=== PATIENT | male | born 1990 | race Caucasian/White ===

== ENCOUNTER 2016-12-23 09:28 | Emergency (ER) | payer BC, OTHER ==
[2016-12-23 09:42] VITALS: RESP 18; TEMP 97.8
[2016-12-23] MEDS ORDERED: ALBUTEROL NEBULIZED 2.5 MG/3 ML INHALATION STA (10:28)
--- NOTE | 2016-12-23 10:53 | ED ---
SOB HPI - General Chief Complaint: Shortness of Breath Stated Complaint: Sob Time Seen by Provider: 12/23/16 09:43 Source: patient, RN notes reviewed Mode of arrival: ambulatory Limitations: no limitations - History of Present Illness Initial Comments: this a 26-year-old male presents emergency Department with chief complaint of shortness of breath. Patient states that he started having shortness of breath earlier today. He states that he felt he could not get a full inspiration. Patient states he has no exertional shortness breath. Patient states that he just feels like his right lower lung is not working. Patient has no known history. Patient states that he stopped smoking proximal one month ago. He denies any cough or cold-like symptoms. Denies fever, chills. Patient denies any palpitations or left-sided chest pain. Patient has no abdominal pain including nausea, vomiting diarrhea constipation. - Related Data Home Medications Medication Instructions Recorded Confirmed Acetaminophen [Tylenol] 325 mg PO Q4H PRN 12/23/16 12/23/16 Previous Rx's Medication Instructions Recorded Albuterol Sulfate [Proair Hfa] 1 - 2 puff INHALATION Q4HR PRN #1 12/23/16 inhaler Allergies Allergy/AdvReac Type Severity Reaction Status Date / Time Penicillins Allergy Unknown Verified 12/23/16 10:15 Childhood Review of Systems ROS Statement: Those systems with pertinent positive or pertinent negative responses have been documented in the HPI. ROS Other: All systems not noted in ROS Statement are negative. Past Medical History Past Medical History: No Reported History History of Any Multi-Drug Resistant Organisms: None Reported Past Surgical History: No Surgical Hx Reported Past Psychological History: No Psychological Hx Reported Smoking Status: Former smoker Past Alcohol Use History: None Reported Past Drug Use History: None Reported General Exam Limitations: no limitations General appearance: alert, in no apparent distress Head exam: Present: atraumatic, normocephalic, normal inspection Eye exam: Present: normal appearance, PERRL, EOMI. Absent: scleral icterus, conjunctival injection, periorbital swelling ENT exam: Present: normal exam, normal oropharynx, mucous membranes moist, TM's normal bilaterally, normal external ear exam Neck exam: Present: normal inspection, full ROM. Absent: tenderness, meningismus, lymphadenopathy Respiratory exam: Present: normal lung sounds bilaterally. Absent: respiratory distress, wheezes, rales, rhonchi, stridor Cardiovascular Exam: Present: regular rate, normal rhythm, normal heart sounds. Absent: systolic murmur, diastolic murmur, rubs, gallop, clicks GI/Abdominal exam: Present: soft, normal bowel sounds. Absent: distended, tenderness, guarding, rebound, rigid Back exam: Absent: CVA tenderness (R), CVA tenderness (L) Course Vital Signs 12/23/16 12/23/16 12/23/16 09:40 11:02 11:14 Temperature 97.8 F Pulse Rate 82 74 76 Respiratory 18 Rate Blood Pressure 124/69 O2 Sat by Pulse 99 Oximetry 12/23/16 11:30 Temperature 97.8 F Pulse Rate 93 Respiratory 18 Rate Blood Pressure 138/69 O2 Sat by Pulse 98 Oximetry Medical Decision Making - Medical Decision Making 26-year-old male presented for shortness breath. Patient states she does feel better after breathing treatment. Chest x-ray shows no acute abnormality. Patient be discharged with Proventil inhaler. Return parameters were discussed. Disposition Clinical Impression: Bronchospasm Disposition: HOME SELF-CARE Condition: Stable Instructions: Bronchospasm (ED) Additional Instructions: Please return to the Emergency Department if symptoms worsen or any other concerns. Prescriptions: Albuterol Sulfate [Proair Hfa] 1 - 2 puff INHALATION Q4HR PRN #1 inhaler PRN Reason: difficulty in breathing Time of Disposition: 11:43
--- NOTE | 2016-12-23 11:04 | XR ---
EXAMINATION TYPE: XR chest 2V DATE OF EXAM: 12/23/2016 10:58 AM COMPARISON: NONE HISTORY: Cough, shortness of breath, pain TECHNIQUE: Frontal and lateral views of the chest are obtained. FINDINGS: There is no focal air space opacity, pleural effusion, or pneumothorax seen. The cardiac silhouette size is within normal limits. The osseous structures are intact. IMPRESSION: No acute cardiopulmonary process.
[2016-12-23 11:38] VITALS: BP 138/69; PULSE 93
== END 2016-12-23 11:58 | disposition home or self-care (01) ==
LOC: EC 09:28
DX: J98.01 Acute bronchospasm (principal); Z87.891 Personal history of nicotine dependence; Z88.0 Allergy status to penicillin
CPT/HCPCS: 71020; 94640; 99285

== ENCOUNTER → 2017-05-29 | Outpatient (CLI) | payer OTHER ==
--- NOTE | 2017-05-29 15:50 | XR ---
EXAMINATION TYPE: XR foot complete RT DATE OF EXAM: 05/29/2017 CLINICAL HISTORY: Metal hook puncture wound through right shoe in the mid plantar region. TECHNIQUE: Frontal, lateral, and oblique images of the foot are obtained. COMPARISON: 03/16/2014 FINDINGS: There is no acute fracture/dislocation evident in the right foot. There is incomplete uni on of the previously seen oblique fracture of the medial base of the distal phalanx. The joint spaces in the right foot appear within normal limits. The overlying soft tissue appears unremarkable. Ther e is no radiopaque foreign body present. No subcutaneous emphysema is seen. IMPRESSION: 1. No radiopaque foreign body or subcutaneous emphysema. 2. There is no acute fracture or dislocation in the right foot. 3. Incomplete union of the previously seen fracture of the distal first phalanx on the exam of 014.
== END | disposition home or self-care (01) ==
LOC: RADXRMAIN 15:33
PROVIDERS: ATTEND Emergency Medicine
DX: S91.331A Puncture wound without foreign body, right foot, initial encounter (principal)

== ENCOUNTER → 2017-07-28 | Outpatient (CLI) | payer OTHER, BC ==
--- NOTE | 2017-07-29 10:33 | XR ---
Right humerus HISTORY: Lifting injury, pain 2 views of the right humerus No comparisons Bone mineralization, joint spaces and alignment are maintained. IMPRESSION: No acute fracture or dislocation.
--- NOTE | 2017-07-29 10:34 | XR ---
Right shoulder HISTORY: Large drain 3 views of the right shoulder Correlation to right humerus same date Bone mineralization, joint spaces and alignment are maintained. Right lung apex as visualized is norm al. IMPRESSION: No acute fracture or dislocation is evident.
== END | disposition home or self-care (01) ==
LOC: RADXRMAIN 17:08
PROVIDERS: ATTEND Emergency Medicine
DX: S46.911A Strain of unspecified muscle, fascia and tendon at shoulder and upper arm level, right arm, initial encounter (principal)

== ENCOUNTER → 2018-12-25 | Outpatient (CLI) | payer BC ==
--- NOTE | 2018-12-25 19:15 | CT ---
EXAMINATION TYPE: CT chest wo con DATE OF EXAM: 12/25/2018 COMPARISON: None HISTORY: Abnormal weight loss and coughing up blood x1 year. CT DLP: 422.7 mGycm. Automated Exposure Control for Dose Reduction was Utilized. TECHNIQUE: CT scan of the thorax is performed without IV contrast. FINDINGS: Heart and mediastinum appear normal. There are no hilar masses. There is no evidence of thoracic aort ic aneurysm. Heart size is normal. There is no pericardial effusion. There is no pleural effusion. There is no evidence of pulmonary infiltrate. There is no bronchiectasis. The bony thorax is intact.. Upper abdominal soft tissues are unremarkable. IMPRESSION: Negative CT scan of the chest. I do not see a cause for hemoptysis.
== END | disposition home or self-care (01) ==
LOC: RADCTMAIN 16:55
PROVIDERS: ATTEND Family Medicine
DX: R63.4 Abnormal weight loss (principal)
CPT/HCPCS: 71250

== ENCOUNTER 2020-09-06 11:32 | Day surgery (SDC) | payer BC ==
[2020-09-04 10:56] VITALS: BMI 31.9
[~2020-09-06 11:32] MED LIST: ALBUTEROL NEB (CONC) 2.5 MG/0.5 ML INHALATION ONE; ATROPINE SULFATE 0.4 MG/ML 1 ML VIAL IM ONE; LACTATED RINGERS 1,000 ML IV SCH; LIDOCAINE 1% (10MG/ML) FOR IV START INTRADERMA PRN; LIDOCAINE 2% (PF) 20 MG/ML 5 ML VIAL INHALATION ONE; LIDOCAINE VISCOUS 300 MG/15 ML CUP MUCOUS MEM ONE; SODIUM CHLORIDE 0.9% 1,000 ML IV SCH
[2020-09-06 12:47] LABS: Glucose,Whole Blood 88 mg/dL (75-99)
[2020-09-06] MEDS ORDERED: PROPOFOL 10 MG/ML 20 ML VIAL IV ONE (14:30)
[2020-09-06] MEDS ORDERED: LIDOCAINE 1% INJ 10MG/ML (20 ML MDV) ONE (14:30)
[2020-09-06] MEDS ORDERED: fentaNYL (PF) 50 MCG/ML 2 ML AMP ONE (14:30)
[2020-09-06] MEDS ORDERED: SUCCINYLCHOLINE CHLORIDE 100 MG/5 ML SYR IV ONE (14:30)
[2020-09-06 15:23] VITALS: TEMP 97.5
[2020-09-06 15:33] VITALS: RESP 16
[2020-09-06 16:00] VITALS: BP 124/86; PULSE 75
[2020-09-06 16:37] LABS: Appearance,BF Clear; Nucleated Cells, Body Fluid 18 /uL; RBC, Body Fluid 10 /uL
--- NOTE | 2020-09-07 02:01 | PCN ---
PROCEDURE NOTE PULMONARY/CRITICAL CARE PROCEDURE NOTE: PROCEDURE: Bronchoscopy, airway examination, therapeutic lavage, BAL. PREOPERATIVE DIAGNOSIS: Severe persistent cough. POSTOPERATIVE DIAGNOSIS: Severe persistent cough. Diane Bro CRNA provided general anesthesia. There was informed consent and universal timeout. The patient's procedure was done in room #1. MEDICAL RESIDENT: Dr. Paula. DESCRIPTION OF PROCEDURE: After the patient was adequately sedated and anesthetized, the bronchoscope was inserted through the bronchoscope adapter connected to the endotracheal tube. The bronchoscope was passed through the endotracheal tube into the trachea. There were thick secretions noted in the distal trachea. They were secretions across the tracheal cesar. The tracheal cesar was sharp. The distal trachea was erythematous. There were thick secretions noted throughout the right and left mainstem. The right upper lobe and its 3 segments, right middle lobe and its 2 segments, right lower lobe and its 5 segments, left upper lobe proper and its 2 segments, lingula and its 2 segments and left lower lobe and its 4 segments all had similar findings of diffuse bronchitis, airway erythema, hyperemia and thick viscid secretions. There was no dominant mass or tumor. There was some mucosal friability. There was some vascular engorgement. The secretions were suctioned with some difficulty. The bronchoscope was then wedged into the right middle lobe. The BAL took place. Thirty mL was recovered. The specimens to be sent to the laboratory for analysis. There was no immediate complication. The bronchoscope was withdrawn. Pictures were taken. It will be presented to the patient. The patient will be recovered. MMODL / IJN: [id number] / MTDD
== END 2020-09-06 16:14 | disposition home or self-care (01) ==
LOC: ORWHC2ENDO 11:32
PROVIDERS: ATTEND Internal Medicine Critical Care Medicine
DX: J40 Bronchitis, not specified as acute or chronic (principal); J81.1 Chronic pulmonary edema; J90 Pleural effusion, not elsewhere classified; E66.9 Obesity, unspecified; K08.89 Other specified disorders of teeth and supporting structures; J44.9 Chronic obstructive pulmonary disease, unspecified; G47.33 Obstructive sleep apnea (adult) (pediatric); F17.210 Nicotine dependence, cigarettes, uncomplicated; F31.9 Bipolar disorder, unspecified; Z88.0 Allergy status to penicillin; Z87.09 Personal history of other diseases of the respiratory system; Z68.32 Body mass index [BMI] 32.0-32.9, adult; Z79.52 Long term (current) use of systemic steroids; Z83.49 Family history of other endocrine, nutritional and metabolic diseases
CPT/HCPCS: 87798 ×3; 87496; 87498; 87529 ×2; 88108; 88305; 89050; 87252; 87502; 87634; 87070; 87205; 87116; 87102; 87206; 31624; J0461; J2001; J3010; J0330; J2704

== ENCOUNTER → 2022-04-22 | Outpatient (CLI) | payer BC ==
--- NOTE | 2022-05-07 11:24 | CA ---
Stress Echo Report Alexis Melgar Age: 31 Gender: M : 1990 Exam Date: 04/22/2022 10:05 Exam Location: [facility] Ht (in): 68 Wt (lb): 210 Ordering Physician: Maxx Szymanski DO Referring Physician: ANDERSON,, Soup Mixer: Magnolia Burrell RDCS Technologist Procedure CPT: Indication: R07.9 CHEST PAIN ICD-9 Codes: Rhythm: Patient History: Cardiac Medications: Medications in past 24 hours: Contrast: Stress Results Protocol: Carter Total dose(mL): Exercise Duration (min:sec): Max ST Depression (mm): Angina Score: Langford Score: METS: 11.7 Resting HR: 81 Resting BP: 132 / 65 Peak HR: 166 Peak BP: 210 / 78 Max Predicted HR: 190 87 % Max Predicted HR Target HR: 162 Double Product: [id number] Stress Summary: 1 good exercise tolerance 2. Normal EKG response to exercise BP Response: Reason for Termination: MAX EXERTION/TARGET HR Cardiac Symptoms: DIFFICULTY IN BREATHING ECG Analysis Resting ECG: Sinus mechanism, normal axis and intervals, normal EKG Stress ECG: Normal response Arrhythmia: Echo Analysis Resting Echo: Normal wall motion Peak Echo Analysis: Normal motion, no hypokinesis or akinesis MEASUREMENTS (Male/Female) Normal Values CONCLUSIONS 1. Good exercise tolerance with normal EKG response 2. Normal echo response at peak exercise with no evidence of ischemia Dr. Jani Sargent MD (Electronically Signed) Final Date: 07 May 2022 11:23
== END | disposition home or self-care (01) ==
LOC: RADNMMAIN 09:49
PROVIDERS: ATTEND Family Medicine
DX: R07.9 Chest pain, unspecified (principal)
CPT/HCPCS: 93351